=== PATIENT | male | born 1980 | race Caucasian/White ===

== ENCOUNTER 2019-09-09 13:23 | Day surgery (SDC) ==
[2019-09-09] MEDS ORDERED: NS 1,000 ML IV ONE (14:16)
[2019-09-09] MEDS ORDERED: MORPHINE IV ONE (14:16)
[2019-09-09] MEDS ORDERED: ZOFRAN IV ONE (14:16)
--- NOTE | 2019-09-09 14:30 | PROVIDER DOCUMENTATION ---
HPI-Abdominal Pain/GI Problem - General Chief Complaint: Abdominal Pain Stated Complaint: STOMACH PAIN Time Seen by Provider: 09/09/19 13:46 Source: patient Allergies/Adverse Reactions: Patient Allergies Allergy/AdvReac Type Severity Reaction Status Date / Time No Known Allergies Allergy Verified 09/09/19 14:39 Home Medications: Home Medication List Medication Instructions Recorded Confirmed Last Taken Type NK [No Home Medications] 09/09/19 09/09/19 Unknown History - History of Present Illness-ABD Nature of Presenting Problems: Patient is a 38 yowm who complains of RLQ abdominal pain associated with nausea and chills since last night. Reports constipation for the last few days. Denies fever or any other complaints. Review of Systems - Adult - REVIEW OF SYSTEMS - ADULT Constitutional: reports: see HPI, chills. denies: fever Eyes: reports: no symptoms reported Ears, Nose, Mouth & Throat: reports: no symptoms reported Cardiovascular: reports: no symptoms reported Respiratory: reports: no symptoms reported Gastrointestinal: reports: see HPI Genitourinary: reports: no symptoms reported, other (denies testicular pain). denies: dysuria, frequency, flank pain, hematuria, urinary retention Musculoskeletal: reports: no symptoms reported Integumentary: reports: no symptoms reported Neurological: reports: no symptoms reported Psychiatric: reports: no symptoms reported Endocrine: reports: no symptoms reported Hematologic/Lymphatic: reports: no symptoms reported Allergic/Immunologic: reports: no symptoms reported All Other Systems: Reviewed and Negative Past History - Adult - PAST MEDICAL HISTORY-ADULT Review of Records: reports: Nursing Assessment Review, Medications Reviewed, Social history reviewed & non-contributory. Major Childhood Illnesses: reports: denies history Cardiovascular: reports: denies history Respiratory: reports: denies history Gastrointestinal: reports: denies history Obstetrical/Gynecological: reports: denies history Genitourinary: reports: denies history Musculoskeletal: reports: denies history Neurological: reports: denies history Endocrine/Immune: reports: denies history Other Conditions: reports: denies history - PRIOR SURGERIES/PROCEDURES Surgical/Procedure History: reports: none - IMMUNIZATION STATUS Childhood Immunizations: See Nurse Assessment Flu Vaccine: See Nurse Assessment - FAMILY HISTORY Family History: reviewed, not pertinent - SOCIAL HISTORY Smoking: quit greater than 1 year Physical Exam-General - PHYSICAL EXAM-ADULT Initial Vital Signs Reviewed: Yes - CONSTITUTIONAL General Appearance: alert, mild distress. negative: lethargic, slow to respond - EYES Eyes: PERRL/EOMI, pink conjunctivae - HEAD, EARS, NOSE, MOUTH & THROAT HENMT: normocephalic/atraumatic, moist mucous membranes - NECK Neck: full range of motion, supple, normal inspection - RESPIRATORY Respiratory: chest non-tender, lungs clear, normal breath sounds, no pleuratic chest pain, no respiratory distress, no accessory muscle use - CARDIOVASCULAR Cardiovascular: normal peripheral pulses, regular rate, rhythm, no gallop, no murmur - GASTROINTESTINAL (ABDOMEN) Abdominal Exam: normal bowel sounds, soft, no organomegaly, no pulsatile mass, McBurney's point tenderness. negative: distended, guarding, rigid, rebound, hernia, mass - MUSCULOSKELETAL Back Exam: normal inspection Extremity: normal range of motion, non-tender, normal gait, normal inspection - SKIN Integumentary: normal color, warm/dry. negative: cyanosis, diaphoresis, jaundice, mottled, pallor - NEUROLOGIC Neurologic: grossly normal, no motor/sensory deficits - PSYCHIATRIC Psych/Mental Status: normal mood/affect, normal thought content, normal thought process, oriented x 3 Progress - PLAN OF CARE/RESULTS Progress/Plan/Lab Results: Vital Signs - 8 hr 09/09/19 13:24 Temperature 97.4 F L Pulse Rate 95 H Respiratory Rate 18 Blood Pressure 110/81 O2 Sat by Pulse Oximetry 98 Orders Category Date Time Status Saline Loc NOW Care 09/09/19 13:[address] ABD/PELVIS W/IV CONT ONLY [CT] Stat Exams 09/09/19 14:16 Ordered AMYLASE [CHEM] Stat Lab 09/09/19 13:47 Uncollected CBC WITH DIFF [HEME] Stat Lab 09/09/19 13:47 Ordered COMPREHENSIVE METABOLIC PANEL [CHEM] Stat Lab 09/09/19 13:47 Uncollected LIPASE [CHEM] Stat Lab 09/09/19 13:47 Uncollected UA NIMS W/REFLEX CULT [URINALYSIS] Stat Lab 09/09/19 13:47 Uncollected 0.9% Sodium Chloride Inj [Ns] 1,000 ml Med 09/09/19 14:16 Active IV 999 mls/hr Morphine Med 09/09/19 14:16 Discontinued 4 mg IV NOW ONE Ondansetron [Zofran] Med 09/09/19 14:16 Discontinued 4 mg IV NOW ONE Result Diagrams: 09/09/19 14:50 09/09/19 14:50 - REASSESSMENT Reassessment #1 Time Reassessed: 16:36 Status: other (Dr. Ferrara (surgery) paged.) Reassessment #2 Time Reassessed: 16:58 Status: improving (Pain/nausea improved with meds. Pt in agreement with current plan.) - CT/MRI 1 CT Study: Abdomen, Pelvis ([facility] - [address], [address], [place] [address] [facility] - [address] , [place] [address] Department of Imaging Patient: LEONCIO HERNÁNDEZ Date: 09/09/19#: [id number] : 1980ADM Status: REG [facility]#: [id number] Age/Sex: 38/MRoom/Bed: Loc: ED Ordering Physician: Leslie Marti Family Physician: None,PCP Reason for Procedure: RLQ pain/tenderness, nausea Signed CT ABD/PELVIS W/IV CONT ONLY - 09/09/2019 INDICATION: RLQ pain/tenderness, nausea COMPARISON: None FINDINGS: The lung bases are clear and the heart size is normal. The liver, gallbladder, spleen, pancreas, adrenals, and kidneys are normal. The vermiform appendix is dilated enhancement and surrounding inflammatory edema. The appendix measures about 12 mm. No drainable fluid collections. No free air. No bowel obstruction. Urinary bladder wall demonstrates moderate thickening. Prostate and rectum are normal. There are chronic bilateral L5 pars defects. Otherwise bones are intact. IMPRESSION: 1. Acute appendicitis. 2. Probable cystitis. 3.. Thi s report was discussed with Leslie Deras on 09/09/2019 at 4:20 PM and was readback. This exam was performed using automated exposure control, adjustment of mA or kV according to patient size, and/or use of iterative reconstruction technique Electronically signed by Brandon Allison 09/09/2019 4:24 PM 09/09/19 1624 Interpreting Physician: Brandon Allison MD Dictated Date/Time: 09/09/19 1619 cc: Leslie Marti; None,PCP) - CONSULTS/PCP/HOSPITALIST Notification #1 *Consult/PCP/Hospitalist*: Dr. Ferrara Time Discussed: 16:42 Reason/Comments: acute appendicitis Consult Disposition: Will see in ED (States to give abx and he will be by to see pt after he leaves the OR.) Departure - Departure Date of Disposition Decision: 09/09/19 Time of Disposition Decision: 16:30 DIAGNOSIS: Acute appendicitis Qualifiers: Acute appendicitis type: unspecified acute appendicitis type Qualified Code(s): K35.80 - Unspecified acute appendicitis Disposition: ADMITTED INPATIENT 09 Certified Medical Emergency: Emergent Condition: Stable Referrals and Follow-Ups: None,PCP [Primary Care Provider] - - Critical Care Note This patient required my direct & personal management of CC.: No Attestation - Physician/ LUKAS Attestation Patient care was provided by Advanced Practice Provider:: Yes Advanced Practice Provider:: Leslie Marti Advanced Practice Provider documentation review:: The Mid-level provider documentation, treatment plan and medical decision making was reviewed by the physician who agrees with all treatment and medical decision making by the [facility]. The physician spent face to face time with patient:: No Advanced Practice Provider documentation review:: Supervising physician onsite and consulted in the evaluation and care of this patient. The physician did not have a face to face encounter with the patient.
[2019-09-09 15:15] LABS: BASO# 0.02 X1000 (0.0-0.2); BASO% 0.1 % (0.0-0.8); EOS# 0.01 X1000 (0.0-0.7); EOS% 0.1 % (0.0-10.0); HEMATOCRIT 44.1 % (42.0-52.0); HEMOGLOBIN 15.2 g/dL (14.0-18.0); IMM GRAN# 0.03 X1000 (0.0-0.04); IMM GRAN% 0.2 % (0.0-0.5); LYMPH# 1.33 X1000 (1.2-3.4); LYMPH% 8.8 % (20.5-51.1); MCH 31.1 PG (27-31); MCHC 34.5 g/dL (33-37); MCV 90.4 FL (81-99); MONO# 1.06 X1000 (0.11-0.59); MPV 9.8 FL (7.4-10.4); NEUT# 12.67 X1000 (1.4-6.5); NEUT% 83.8 % (42.2-75.2); PLT 247 X1000 (130-400); RBC 4.88 XMIL (4.7-6.1); RDW 12.4 % (11.5-14.5); WBC 15.12 X1000 (4.8-10.8)
[2019-09-09 15:38] LABS: AGAP 11; ALB/GLOB RATIO 2.5; ALBUMIN 4.9 g/dL (3.5-5.0); ALKALINE PHOSPHATASE 57 U/L (32-122); AMYLASE 38 U/L (20-200); BUN 13 mg/dL (8-22); CALCIUM 9.5 mg/dL (8.8-10.2); CHLORIDE 99 mmol/L (98-107); COSMO 270; CREATININE 0.8 mg/dL (0.7-1.2); ESTIMATED GFR > 60; GLUCOSE 95 mg/dL (70-104); GOT 17 U/L (10-34); GPT 16 U/L (10-44); LIPASE 16 U/L (13-60); POTASSIUM 3.7 mmol/L (3.5-5.1); SODIUM 135 mmol/L (136-145); TCO2 25 mmol/L (25-35); TOTAL BILIRUBIN 1.67 mg/dL (0.20-1.00); TOTAL PROTEIN 6.9 g/dL (6.3-8.3)
--- NOTE | 2019-09-09 16:26 | Diag Imaging Result Doc PS360 ---
CT ABD/PELVIS W/IV CONT ONLY - 09/09/2019 INDICATION: RLQ pain/tenderness, nausea COMPARISON: None FINDINGS: The lung bases are clear and the heart size is normal. The liver, gallbladder, spleen, pancreas, adrenals, and kidneys are normal. The vermiform appendix is dilated enhancement and surrounding inflammatory edema. The appendix measures about 12 mm. No drainable fluid collections. No free air. No bowel obstruction. Urinary bladder wall demonstrates moderate thickening. Prostate and rectum are normal. There are chronic bilateral L5 pars defects. Otherwise bones are intact. IMPRESSION: 1. Acute appendicitis. 2. Probable cystitis. 3.. This report was discussed with Leslie Deras on 09/09/2019 at 4:20 PM and was readback. This exam was performed using automated exposure control, adjustment of mA or kV according to patient size, and/or use of iterative reconstruction technique Electronically signed by Brandon Allison 09/09/2019 4:24 PM
[2019-09-09] MEDS ORDERED: ZOSYN 3.375 GM in NS 50 ML IV ONE (16:43)
[2019-09-09 16:48] LABS: URINE SOURCE CLEAN CATCH
[2019-09-09] MEDS ORDERED: DIPRIVAN 1% ONE (16:52)
[2019-09-09] MEDS ORDERED: XYLOCAINE-MPF 2% ONE (16:54)
[2019-09-09] MEDS ORDERED: QUELICIN (DOSE) ONE (16:56)
[2019-09-09 16:57] LABS: BILIRUBIN URINE NEGATIVE (NEGATIVE); BLOOD URINE NEGATIVE (NEGATIVE); COLOR ORANGE; GLUCOSE URINE NEGATIVE (NEGATIVE); KETONE URINE >150 mg/dL (NEGATIVE); LEUKOCYTES URINE NEGATIVE (NEGATIVE); NITRITE URINE NEGATIVE (NEGATIVE); PROTEIN URINE TRACE mg/dL (NEGATIVE); SP GRAVITY URINE 1.027; TURBIDITY URINE CLEAR (CLEAR); UROBILINOGEN URINE 2 mg/dL (NORMAL)
[2019-09-09] MEDS ORDERED: FENTANYL ONE (16:57)
[2019-09-09 16:59] LABS: UR EPITHELIAL CELLS <10 /HPF (<10); URINE BACTERIA NEGATIVE /HPF; URINE RBC <10 /HPF (<10); URINE WBC <10 /HPF (<10)
[2019-09-09 17:04] LABS: URINE CRYSTALS NONE SEEN
[2019-09-09] MEDS ORDERED: LR 1,000 ML ONE (17:23)
[2019-09-09] MEDS ORDERED: SENSORCAINE-MPF 0.5%/EPI 1:200,000 ONE (17:24)
[2019-09-09] MEDS ORDERED: TORADOL ONE (18:02)
[2019-09-09] MEDS ORDERED: DECADRON ONE (18:02)
[2019-09-09] MEDS ORDERED: ZOFRAN ONE (18:02)
[2019-09-09] MEDS ORDERED: ROBINUL ONE (18:29)
[2019-09-09] MEDS ORDERED: NEOSTIGMINE ONE (18:30)
[2019-09-09] MEDS: DILAUDID ONE ×5 (18:49→19:01)
[2019-09-09] MEDS ORDERED: ZOFRAN IV PRN (20:04)
[2019-09-09] MEDS: NORCO-10 PO PRN (20:35)
--- NOTE | 2019-09-09 20:49 | OPERATIVE NOTE ---
PROCEDURE DATE: 09/09/2019 PREOPERATIVE DIAGNOSIS: Appendicitis. POSTOPERATIVE DIAGNOSIS: Appendicitis. PROCEDURE: Laparoscopic appendectomy. SURGEON: Sourav Ferrara MD. [employer] ATTENDANT: None. ANESTHESIA: General endotracheal. OPERATIVE FINDINGS: Appendicitis. COMPLICATIONS: None at the time of this dictation. ESTIMATED BLOOD LOSS: 10 mL. SPECIMEN REMOVED: Appendix. BRIEF HISTORY: A 38-year-old gentleman presenting with abdominal pain. CT scan and physical exam were consistent with appendicitis. It was felt that he would benefit from appendectomy. The risks, benefits, and alternatives for the procedure were discussed. All questions answered. DESCRIPTION OF PROCEDURE: After informed consent was obtained, patient was brought to the operative theatre, transferred to the operating table and placed in supine position. General endotracheal anesthesia was then performed without complication. A formal time-out was then performed confirming patient and procedure, all were in agreement. At that time, attention was given to the abdomen. An infraumbilical incision was made through which using Optiview technique, we inserted a 12 mm trocar and connected to insufflation. Pneumoperitoneum was achieved. Under direct visualization, we placed 2 more trocars, 1 in the left lower quadrant, 1 in the right upper quadrant. Using these, the appendix was identified. It was inflamed consistent with appendicitis. We elevated, made a window in the base of the mesoappendix, fired a stapler across the base of the appendix, and then fired a stapler across the mesoappendix with good results. There was no active bleeding. No drainage of stool or succus. We placed the appendix in an endobag and brought it out through the infraumbilical incision. We then irrigated out the abdomen until suction fluid was clear. We then closed the infraumbilical incision with 0 Vicryl on a Demetris-[place] device. We then removed all trocars, disconnected insufflation. Pneumoperitoneum was released. All skin incisions were closed with 4-0 Monocryl. The patient tolerated the procedure well and was transferred back to the recovery room. cc: Sourav Ferrara MD
[2019-09-10] MEDS: NORCO-10 PO PRN (02:44)
[2019-09-10 07:26] VITALS: BP 108/72
== END 2019-09-10 09:24 | disposition home or self-care (01) ==
LOC: ED 13:23 → 3N 13:23 → OPS 13:24
PROVIDERS: ATTEND Surgery